=== PATIENT | female | born 1935 | race Caucasian/White ===

== ENCOUNTER → 2023-07-30 12:56 | Outpatient (REF) | payer MEDICARE, SELFPAY ==
[2023-07-31 09:34] LABS: Glycohemoglobin (HgbA1c) 5.7 % (4.0-5.6)
== END ==
LOC: OLABPATH 12:56
PROVIDERS: ATTENDING PHYSICIAN Internal Medicine
DX: E11.00 Type 2 diabetes mellitus with hyperosmolarity without nonketotic hyperglycemic-hyperosmolar coma (NKHHC) (principal)
CPT/HCPCS: 36415; 83036

== ENCOUNTER 2023-08-07 12:01 | Emergency (ER) | payer MEDICARE, SELFPAY ==
[2023-08-07 12:03] VITALS: BP 160/89
[2023-08-07 12:17] VITALS: BP 156/93
--- NOTE | 2023-08-07 12:33 | ED.GENMED ---
History of Present Illness
General
Chief Complaint: Fall
Source: patient
Exam Limitations: none
Time Seen by Provider: 08/07/23 12:19
Travel History
Have you had any contact with someone who has COVID-19?: No
Do you have any symptoms of coronavirus? Fever > 100 degrees, chills, cough, shortness of breath, sore throat, loss of taste or smell, muscle aches, or headache?: No
History of Present Illness
History of Present Illness:
88 year old female presents from SNF after fall. Typically patient is wheelchair-bound. She tried to stand off of the commode on her own and fell forward hitting the top of her head her left shoulder and her left knee. No anticoagulants. No no
loss of conscious. No other complaints at this time
Past History
Past History
ED Past Medical History: CHF, COPD, HTN, Hypercholesterolemia, Valvular disease (Leaky aortic valve) and Other (Osteoarthritis, cataracts)
ED Past Surgical History: Cardiac (TAVR, pacemaker) and Orthopedic
Social History
Tobacco: Former smoker
Alcohol: Occasional
Drug: None
Personal:
Living: assisted living
Phy Exam
Physical Exam
Physical Exam:
General: Well-appearing female no acute respiratory distress
HEENT: Normocephalic hematoma noted to the superior scalp
Heart: Regular rate and rhythm no murmurs
Lungs: Clear to auscultation bilaterally no wheezing
Musculoskeletal exam: Spine is nontender. She is tender over the left shoulder anteriorly and anteriorly over the left knee with no deformities.
Neurologic: Alert and oriented no facial asymmetry
Course
Orders/Labs/Results
Orders:
Orders
08/07/23 12:29
CT Cervical Spine W/o Iv Contr Urgent
Comment:
Reason For Exam: fall
CT Head W/o Iv Contrast Urgent
Comment:
Reason For Exam: fall
CR Knee - Left 4 Or More View* Urgent
Comment:
Reason For Exam: fall
CR Shoulder, Trauma - Left Urgent
Comment:
Reason For Exam: fall
Vital Signs
Initial and Last Documented VS:
Initial Vital Signs
Temp Pulse Resp BP Pulse Ox
98.7 F 69 18 160/89 96
08/07/23 12:03 08/07/23 12:03 08/07/23 12:03 08/07/23 12:03 08/07/23 12:03
Last Documented Vital Signs
Temp Pulse Resp BP Pulse Ox
98.7 F 66 18 156/93 95
08/07/23 12:03 08/07/23 12:45 08/07/23 12:45 08/07/23 12:17 08/07/23 12:45
MDM/Problems Addressed
Differential Diagnosis Includes:
Fall. There is a hematoma to the scalp. Will CT head and cervical spine. X-ray left shoulder and left knee pending
*Critical Care Note
Total Time (30-74mins, 75-104mins- exclusive of procedures): Not Applicable
Update Note
Update Note:
CT of head and cervical spine negative for acute fracture intracranial hemorrhage. There is a hematoma noted to the superior scalp and forehead. X-ray left shoulder and left knee were both negative for acute findings. Patient and family
comfortable with discharge [facility] family comfortable taking her back.
ED Attending Note
-
Portions of this chart may have been created with voice recognition software.� Occasional wrong word or��sound alike� substitutions may have occurred due to the inherent limitations of voice recognition software.
Discharge Plan
Departure
Patient Disposition: Home (Routine Discharge)
Date of Disposition: 08/07/23
Time of Disposition: 14:55
Patient with high blood pressure during this ER visit?: No
Discharge Problem:
Fall
Instructions: Contusion (DC)
Prescriptions:
No Action
rosuvastatin [Crestor] 40 MG tablet
40 mg PO HS
diltiazem HCl [Cartia XT] 300 MG capsule,extended release 24hr
300 mg PO DAILY
fluticasone propion-salmeterol [Advair Diskus] 250-50 mcg/dose Blister With Device
1 inh INHALATION R BID
cyanocobalamin (vitamin B-12) [Vitamin B-12] 1,000 mcg Tablet
1,000 mcg PO DAILY
aspirin 81 mg Tablet,Delayed Release (Dr/Ec)
81 mg PO DAILY
Multivitamin Gummies 200 mcg Tablet,Chewable
1 tab PO DAILY
Incruse Ellipta 62.5 mcg/actuation blister with device
1 inh INHALATION R DAILY
pantoprazole 40 MG tablet,delayed release (DR/EC)
40 mg PO DAILY
amiodarone [Pacerone] 200 mg Tablet
200 mg PO DAILY Qty: 60 1RF
bupropion HCl 150 mg tablet extended release 24 hr
150 mg PO DAILY
loratadine [Claritin] 10 mg Tablet
10 mg PO HS
ferrous sulfate [FeroSul] 325 mg (65 mg iron) Tablet
325 mg PO NOON Qty: 100 0RF
furosemide 40 mg Tablet
40 mg PO BID AT 0800,1600 Qty: 60 0RF
spironolactone 25 mg Tablet
12.5 mg PO DAILY Qty: 30 0RF
ropinirole 0.25 mg Tablet
0.25 mg PO HS Qty: 30 0RF
potassium chloride 20 mEq tablet,ER particles/crystals
40 meq PO DAILY Qty: 60 0RF
Referrals:
Richard Feldman DO [Family Provider] -
Activity Restrictions/Additional Instructions:
You may use Tylenol if needed for pain. Ice to the sore spot. Return if worse otherwise
Interventions
Interventions:
*Risk Screen - Suicide Last Done: 08/07/23 12:03
*General Assessment Last Done: 08/07/23 12:03
*Neglect/Abuse Screening Last Done: 08/07/23 12:03
ED- Fall Risk Assessment Last Done: 08/07/23 12:23
*ED COVID-19 Vaccine History Last Done: 08/07/23 12:23
ED-Musculoskeletal Assessment Last Done: 08/07/23 12:23
ED- Neurological Assessment Last Done: 08/07/23 12:23
ED-Skin Assessment Last Done: 08/07/23 12:23
== END 2023-08-07 15:05 | disposition home or self-care (01) ==
LOC: EMR 12:01
PROVIDERS: EMERGENCY PHYSICIAN Emergency Medicine; FAMILY PHYSICIAN Internal Medicine
DX: S00.03XA Contusion of scalp, initial encounter (principal); W19.XXXA Unspecified fall, initial encounter; Z87.891 Personal history of nicotine dependence
CPT/HCPCS: 99284; 70450; 72125; 73030; 73564

== ENCOUNTER → 2023-10-28 17:36 | Outpatient (REF) | payer MEDICARE, SELFPAY ==
[2023-10-28 18:37] LABS: Hematocrit 38.8 % (37.0-47.0); Hemoglobin 12.6 g/dL (12.0-16.0); Mean Corp Hgb Conc. 32.5 g/dL (33.0-37.0); Mean Corpuscular Hgb 29.2 pg (27.0-31.0); Mean Platelet Volume 8.8 fL (7.4-10.4); Platelet Count 303 10^3/uL (130-400); Red Blood Cell Count 4.31 10^6/uL (4.20-5.40); Red Cell Dist. Width 15.5 % (11.5-14.5)
[2023-10-28 18:44] LABS: ALT (SGPT) 13 U/L (0-35); AST (SGOT) 21 U/L (14-36); Albumin 3.9 g/dl (3.5-5.0); Alkaline Phosphatase 105 U/L (38-126); Blood Urea Nitrogen 25 mg/dl (7-17); Calcium 9.4 mg/dl (8.4-10.2); Carbon Dioxide 25 mmol/L (22-30); Chloride 106 mmol/L (98-107); Glucose 156 mg/dl (70-99); Potassium 4.3 mmol/L (3.5-5.1); Sodium 140 mmol/L (135-145); Total Bilirubin 0.6 mg/dl (0.2-1.3); Total Protein 6.8 g/dl (6.3-8.2); eGFR 43.81
[2023-10-28 19:14] LABS: TSH 1.04 uIU/ml (0.47-4.68)
== END ==
LOC: CLAB 17:36
PROVIDERS: ATTENDING PHYSICIAN Internal Medicine
DX: I48.91 Unspecified atrial fibrillation (principal); I10 Essential (primary) hypertension; I50.9 Heart failure, unspecified; F32.A Depression, unspecified; F05 Delirium due to known physiological condition
CPT/HCPCS: 36415; 80053; 84443; 85027

== ENCOUNTER 2023-11-18 05:32 | Emergency (ER) | payer MEDICARE, SELFPAY ==
[2023-11-18 05:35] VITALS: BP 179/77; BMI 29.3
--- NOTE | 2023-11-18 05:56 | ED.GENMED ---
History of Present Illness
General
Chief Complaint: Fall
Source: patient
Exam Limitations: none
Time Seen by Provider: 11/18/23 05:53
Travel History
Have you had any contact with someone who has COVID-19?: No
Do you have any symptoms of coronavirus? Fever > 100 degrees, chills, cough, shortness of breath, sore throat, loss of taste or smell, muscle aches, or headache?: No
History of Present Illness
History of Present Illness:
See MDM
Past History
Past History
ED Past Medical History: CHF, COPD, HTN, Hypercholesterolemia, Valvular disease (Leaky aortic valve) and Other (Osteoarthritis, cataracts)
ED Past Surgical History: Cardiac (TAVR, pacemaker) and Orthopedic
Social History
Tobacco: Former smoker
Alcohol: Occasional
Drug: None
Personal:
Living: assisted living
Phy Exam
Physical Exam
Physical Exam:
See MDM
Course
Orders/Labs/Results
Orders:
Orders
11/18/23 05:33
CT Head W/o Iv Contrast Urgent
Comment:
Reason For Exam: fall
Vital Signs
Initial and Last Documented VS:
Initial Vital Signs
Temp Pulse Resp BP Pulse Ox
98.4 F 71 16 179/77 95
11/18/23 05:35 11/18/23 05:35 11/18/23 05:35 11/18/23 05:35 11/18/23 05:35
Last Documented Vital Signs
Temp Pulse Resp BP Pulse Ox
98.4 F 71 16 179/77 95
11/18/23 05:35 11/18/23 05:35 11/18/23 05:35 11/18/23 05:35 11/18/23 05:35
Procedures
Laceration Closure
Left Superior Lateral Scalp:
Status of Wound: clean
Size of Wound in cm: 3
Description of Wound Edges: sharp
Preparation: cleaned with soap & water
Anesthesia: 1% Lidocaine with epi
Revision/Debridement: routine- no revision
Wound exploration: explored to base- no FB
Type of Closure: single layer closure
Skin Closure Material: skin chris (x 5) and 4-0 vicryl (x 2)
Number of sutures: 2
MDM/Problems Addressed
Differential Diagnosis Includes:
HPI and MDM Narrative:
88-year-old female presenting with a trip and fall. Patient got out of bed knowing that she requires help. Patient had a fall and she landed on the left side of her head. Patient found to have large hematoma to her left scalp. She denies
headache. She denies neck pain. Patient also found to have bruising to her left wrist. However, she denies any wrist pain.
On exam, there is a large hematoma to her left scalp. Given age and injury, will obtain CT head although there is some bruising noted to the left wrist, there is no bony tenderness.
Physical exam
General: Well appearing and non-toxic
HEENT: protecting airway. Large hematoma to left scalp
Neck: appears supple
CV: No evidence of cyanosis
Resp: No accessory muscle use
Abd: Non-distended
Extremities: Mild bruising to left wrist without bony tenderness
Neuro: alert
Psych: Normal affect
Skin: Intact
Problems Addressed including Acute and Chronic Conditions affecting care:
1. Head injury
Acuity: acute
Prognosis: stable
Details: Will obtain CT head
Updates
6:30 AM I was called to bedside for active scalp bleeding. The nurse was cleaning the wound and we found a 3 cm laceration to left parietal scalp with active bleeding. 2 quick absorbable stitches were placed. Once the wound was approximated and
better visualized, 5 chris was placed with resolution of bleeding.
Review CT head negative. Family feels comfortable with her going back
Differential Diagnosis (but not limited to): Intracranial hemorrhage, scalp contusion, laceration, abrasion
Testing considered: Wrist x-ray but there is no bony tenderness
Drug therapy (if applicable): OTC meds, please see d/c instruction regarding Rx drugs
Amount and/or Complexity of Data Reviewed
Clinical info obtained from: Patient
External data reviewed: N/A
Labs I independently reviewed (but not limited to): N/A
Radiology: The CT scan was personally and independently reviewed. In addition, official CT report reviewed.
Pulse Ox: not hypoxic
EKG independently reviewed: N/A
Day Trader: N/A
Critical Care: N/A
Risk of Complication:
Social Determinants of health: Good social support
Discussed with other providers: N/A
Escalation of Care includes Admit/Obs: After being observed in the Emergency Department, pt stable for discharge.
Occasional wrong word or 'sound a like' substitutions may have occurred due to the inherent limitations of voice recognition software. Read the chart carefully and recognize, using context, where substitutions have occurred.
*Critical Care Note
Total Time (30-74mins, 75-104mins- exclusive of procedures): Not Applicable
ED Attending Note
-
Portions of this chart may have been created with voice recognition software.� Occasional wrong word or��sound alike� substitutions may have occurred due to the inherent limitations of voice recognition software.
Discharge Plan
Departure
Patient Disposition: Home (Routine Discharge)
Date of Disposition: 11/18/23
Time of Disposition: 08:12
Patient with high blood pressure during this ER visit?: Yes
Discharge Problem:
Head injury
Instructions: Laceration Repair With Chris (DC), BLOOD PRESSURE
Prescriptions:
No Action
rosuvastatin [Crestor] 40 MG tablet
40 mg PO HS
diltiazem HCl [Cartia XT] 300 MG capsule,extended release 24hr
300 mg PO DAILY
fluticasone propion-salmeterol [Advair Diskus] 250-50 mcg/dose Blister With Device
1 inh INHALATION R BID
cyanocobalamin (vitamin B-12) [Vitamin B-12] 1,000 mcg Tablet
1,000 mcg PO DAILY
aspirin 81 mg Tablet,Delayed Release (Dr/Ec)
81 mg PO DAILY
Multivitamin Gummies 200 mcg Tablet,Chewable
1 tab PO DAILY
Incruse Ellipta 62.5 mcg/actuation blister with device
1 inh INHALATION R DAILY
pantoprazole 40 MG tablet,delayed release (DR/EC)
40 mg PO DAILY
amiodarone [Pacerone] 200 mg Tablet
200 mg PO DAILY Qty: 60 1RF
bupropion HCl 150 mg tablet extended release 24 hr
150 mg PO DAILY
loratadine [Claritin] 10 mg Tablet
10 mg PO HS
ferrous sulfate [FeroSul] 325 mg (65 mg iron) Tablet
325 mg PO NOON Qty: 100 0RF
furosemide 40 mg Tablet
40 mg PO BID AT 0800,1600 Qty: 60 0RF
spironolactone 25 mg Tablet
12.5 mg PO DAILY Qty: 30 0RF
ropinirole 0.25 mg Tablet
0.25 mg PO HS Qty: 30 0RF
potassium chloride 20 mEq tablet,ER particles/crystals
40 meq PO DAILY Qty: 60 0RF
Referrals:
Richard Feldman DO [Family Provider] -
Activity Restrictions/Additional Instructions:
Please return for any worsening symptoms.
You may return at any time if you have further concerns.
Please follow up with your doctor at the first available appointment, preferably this week.
Please have the chris removed in 7 to 10 days.
Thank you for choosing [facility].
Interventions
Interventions:
*Risk Screen - Suicide Last Done: 11/18/23 05:35
*General Assessment Last Done: 11/18/23 05:35
*Neglect/Abuse Screening Last Done: 11/18/23 05:35
*ED COVID-19 Vaccine History Last Done: 11/18/23 05:35
Discharge Date and Time
Print Language: PRYDEINIG
== END 2023-11-18 08:30 | disposition home or self-care (01) ==
LOC: EMR 05:32
PROVIDERS: EMERGENCY PHYSICIAN Student in an Organized Health Care Education/Training Program; FAMILY PHYSICIAN Internal Medicine
DX: S09.90XA Unspecified injury of head, initial encounter (principal); S01.01XA Laceration without foreign body of scalp, initial encounter; W01.0XXA Fall on same level from slipping, tripping and stumbling without subsequent striking against object, initial encounter; Z87.891 Personal history of nicotine dependence; I11.0 Hypertensive heart disease with heart failure; I50.9 Heart failure, unspecified
CPT/HCPCS: 99284; 12002; 70450

== ENCOUNTER 2024-09-05 17:13 | Emergency (ER) | payer MEDICARE, SELFPAY ==
[2024-09-05 17:18] VITALS: BP 181/92
--- NOTE | 2024-09-05 18:11 | ED.GENMED ---
History of Present Illness
General
Chief Complaint: Fall
Source: patient and family
Time Seen by Provider: 09/05/24 17:43
History of Present Illness
History of Present Illness:
The patient is an 89-year-old female brought in by her daughters after she fell just prior to arrival. Her daughter reports that she needs help getting around and her aide reportedly helped her transfer from her wheelchair to a chair, and she fell
onto her right side. Patient struck the right side of her head. She also hit her right knee. Patient denies neck pain, back pain, chest pain and abdominal pain. Patient has chronic severe left shoulder pain which possibly feels worse after this
fall. Patient has not had any recent illnesses according to her daughters such as fever, cough, shortness of breath, nausea or vomiting. She is not on blood thinners. There is no loss consciousness. Patient denies vision changes, nausea and
vomiting.
Past History
Past History
ED Past Medical History: CHF, COPD, HTN, Hypercholesterolemia, Valvular disease (Leaky aortic valve) and Other (Osteoarthritis, cataracts)
ED Past Surgical History: Cardiac (TAVR, pacemaker) and Orthopedic
Social History
Tobacco: Former smoker
Alcohol: Occasional
Drug: None
Personal:
Living: assisted living
Family History
Family History: Other
Review of Systems
Review of Systems
Allergies reviewed?: Yes
Other source history: family
All Other Systems: ROS reviewed and negative except as documented in HPI and ROS
Constitutional: Reports no symptoms
EENT: Reports no symptoms
Respiratory: Reports no symptoms
Cardiac: Reports no symptoms
ABD/GI: Reports no symptoms
: Reports no symptoms
Musculoskeletal: Reports joint pain
Skin: Reports no symptoms
Neurological: Reports no symptoms
Endocrine: Reports no symptoms
Hematologic/Lymphatic: Reports no symptoms
Phy Exam
Physical Exam
Physical Exam:
Physical Exam
General: no apparent distress, not acutely ill, well appearing, conversational. Parietal scalp contusion on right side. Face appears atraumatic
Neck: supple. Nontender
Heart: s1/s2 regular rate and rhythm , no chest wall tenderness
Lungs: no acute respiratory distress.
Abdomen: Distended but soft
Neuro: alert and orientedx3 . no focal neurological deficits. 5 out of 5 strength in all extremities. Cranial nerves equal and symmetric bilaterally
Skin: no rash
Psychiatric: well kept. interactive and cooperative
Extremities: Patient has soft tissue tenderness of left medial humeral head area which family reports is very chronic. Strong pulses of bilateral upper and lower extremities. No deformity of upper extremities. Pelvis and
hips nontender. Mild contusion right patella area but otherwise full range of movement of lower extremities.
Course
Orders/Labs/Results
Orders:
Orders
09/05/24 17:22
CT Head W/o Iv Contrast Urgent
Comment:
Reason For Exam: fall, right sided head strike.
09/05/24 18:12
Acetaminophen [Tylenol] 1,000 mg PO NOW STA
Shoulder, Left 2 View CR [CR Shoulder - Left Min 2 View*] Urgent
Comment:
Reason For Exam: fall, hx of chronic L shoulder pain
09/05/24 18:36
Acetaminophen [Tylenol] 1,000 mg .ROUTE .STK-MED ONE
Vital Signs
Initial and Last Documented VS:
Initial Vital Signs
Temp Pulse Resp BP Pulse Ox
97.8 F 69 20 181/92 93
09/05/24 17:18 09/05/24 17:18 09/05/24 17:18 09/05/24 17:18 09/05/24 17:18
Last Documented Vital Signs
Temp Pulse Resp BP Pulse Ox
97.8 F 75 18 157/77 92
09/05/24 17:18 09/05/24 21:06 09/05/24 21:06 09/05/24 21:06 09/05/24 21:06
MDM/Problems Addressed
Differential Diagnosis Includes:
Closed head injury, subdural hematoma, left shoulder dislocation, right knee contusion
MDM/Problems Addressed:
Patient presents with mild soreness on right side of scalp, worsening left shoulder pain and right knee pain after a fall
Chronic conditions affecting care: HTN
Acute Exacerbation and/or Progression of Chronic Illness:
There is no sign of CHF or stroke, however, patient is hypertensive, which likely may be due to the fall and being in the ED
Acute Exacerbation and/or Progression of Chronic Illness: HTN
*Radiology
Radiology exam reviewed: preliminary read by ED provider (Left shoulder x-ray reviewed by me. No acute fracture) and radiology read reviewed
*Pulse Oximetry
Patient hypoxic: no
*EKG
Interpreted by ED Provider?: NA
*Indoor Landscaper/Gardener Interpretation
Rate: Indoor Landscaper/Gardener- N/A
*Critical Care Note
Total Time (30-74mins, 75-104mins- exclusive of procedures): Not Applicable
Data Reviewed
Review of Other/Old Records Reveals: Discharge Summary (Discharge summary reviewed from 2022 when patient was admitted for anemia and CHF)
Source: patient and family
Patient Management
Social determinants of health affecting care: Living situation and Strong social support
Escalation/DeEscalation of care consider admission/obs:
Patient appears well and comfortable. She is alert and oriented x 3 without any headache, nausea, vomiting or confusion.
It is unlikely she has an acute intracranial injury. CT head looks negative.
ED Attending Note
-
Portions of this chart may have been created with voice recognition software.� Occasional wrong word or��sound alike� substitutions may have occurred due to the inherent limitations of voice recognition software.
Discharge Plan
Departure
Patient Disposition: Home (Routine Discharge)
Date of Disposition: 09/05/24
Time of Disposition: 19:44
Patient with high blood pressure during this ER visit?: Yes
Condition: Good
Covid-19: Not Applicable
Discharge Problem:
Closed head injury, Contusion of knee, right, Osteoarthritis of left shoulder
Instructions: Head Injury in Adults (DC), Contusion (DC), BLOOD PRESSURE
Prescriptions:
No Action
rosuvastatin [Crestor] 40 MG tablet
40 mg PO HS
diltiazem HCl [Cartia XT] 300 MG capsule,extended release 24hr
300 mg PO DAILY
fluticasone propion-salmeterol [Advair Diskus] 250-50 mcg/dose Blister With Device
1 inh INHALATION R BID
cyanocobalamin (vitamin B-12) [Vitamin B-12] 1,000 mcg Tablet
1,000 mcg PO DAILY
aspirin 81 mg Tablet,Delayed Release (Dr/Ec)
81 mg PO DAILY
Multivitamin Gummies 200 mcg Tablet,Chewable
1 tab PO DAILY
Incruse Ellipta 62.5 mcg/actuation blister with device
1 inh INHALATION R DAILY
pantoprazole 40 MG tablet,delayed release (DR/EC)
40 mg PO DAILY
amiodarone [Pacerone] 200 mg Tablet
200 mg PO DAILY Qty: 60 1RF
bupropion HCl 150 mg tablet extended release 24 hr
150 mg PO DAILY
loratadine [Claritin] 10 mg Tablet
10 mg PO HS
ferrous sulfate [FeroSul] 325 mg (65 mg iron) Tablet
325 mg PO NOON Qty: 100 0RF
furosemide 40 mg Tablet
40 mg PO BID AT 0800,1600 Qty: 60 0RF
spironolactone 25 mg Tablet
12.5 mg PO DAILY Qty: 30 0RF
ropinirole 0.25 mg Tablet
0.25 mg PO HS Qty: 30 0RF
potassium chloride 20 mEq tablet,ER particles/crystals
40 meq PO DAILY Qty: 60 0RF
Referrals:
Richard Feldman DO [Family Provider] -
Activity Restrictions/Additional Instructions:
Return for any vision changes, vomiting or lethargy.
The x-ray of your left shoulder shows progressively worse osteoarthritis of the left shoulder.
Interventions
Interventions:
*Risk Screen - Suicide Last Done: 09/05/24 17:18
*General Assessment Last Done: 09/05/24 17:18
*Neglect/Abuse Screening Last Done: 09/05/24 17:18
*Nursing Disposition Last Done: 09/05/24 21:07
ED-Musculoskeletal Assessment Last Done: 09/05/24 19:33
ED- Neurological Assessment Last Done: 09/05/24 19:33
ED-Skin Assessment Last Done: 09/05/24 19:33
Discharge Date and Time
Discharge Date/Time: 09/05/24 21:10
Print Language: ARMENIAN
[2024-09-05] MEDS: TYLENOL 1000 MG PO (18:44)
[2024-09-05 19:49] VITALS: BMI 31.4
[2024-09-05 21:06] VITALS: BP 157/77
== END 2024-09-05 21:10 | disposition home or self-care (01) ==
LOC: EMR 17:13
PROVIDERS: EMERGENCY PHYSICIAN Emergency Medicine; FAMILY PHYSICIAN Internal Medicine
DX: S09.90XA Unspecified injury of head, initial encounter (principal); S80.01XA Contusion of right knee, initial encounter; M19.012 Primary osteoarthritis, left shoulder; W19.XXXA Unspecified fall, initial encounter; I11.0 Hypertensive heart disease with heart failure; I50.9 Heart failure, unspecified; E78.00 Pure hypercholesterolemia, unspecified; J44.9 Chronic obstructive pulmonary disease, unspecified; Z87.891 Personal history of nicotine dependence; Z95.0 Presence of cardiac pacemaker
CPT/HCPCS: 99284; 70450; 73030